=== PATIENT | female | born 1950 | race Hispanic/Latino ===

== ENCOUNTER 2022-02-25 07:20 | Day surgery (SDC) | payer OTHER ==
[2022-02-23 12:05] LABS: BASOPHILS % (AUTO) 0.5 % (0.0-5.0); EOSINOPHILS % (AUTO) 1.8 % (0.0-8.0); HEMATOCRIT 36.3 % (36-48); LYMPHOCYTES % (AUTO) 28.1 % (21.0-51.0); MEAN CORPUSCULAR HEMOGLOBIN 31.1 pg (27.0-33.0); MEAN CORPUSCULAR HGB CONC 33.1 g/dL (32.0-36.0); MONOCYTES % (AUTO) 5.4 % (3.0-13.0); PLATELET COUNT (AUTO) 242 K/uL (130-400); RED BLOOD CELL COUNT(AUTO) 3.86 MIL/uL (4.00-5.50); RED CELL DISTRIBUTION WIDTH 12.4 % (11.0-15.5); WHITE BLOOD COUNT (AUTO) 6.3 K/uL (4.8-10.8)
[2022-02-23 12:08] LABS: APPEARANCE,URINE CLEAR (CLEAR); BILIRUBIN,URINE NEGATIVE (NEGATIVE); COLOR,URINE LIGHT-YELLOW (YELLOW); GLUCOSE, URINE (UA) NEGATIVE (NEGATIVE); KETONES,URINE NEGATIVE (NEGATIVE); LEUKOCYTE ESTERASE ,URINE NEGATIVE Leu/uL (NEGATIVE); NITRATE,URINE NEGATIVE (NEGATIVE); OCCULT BLOOD,URINE NEGATIVE (NEGATIVE); PH,URINE 7.5 (5.0-8.0); PROTEIN,URINE NEGATIVE (NEGATIVE); UROBILINOGEN,URINE 0.2 mg/dL (0.2-1.0)
[2022-02-23 12:18] LABS: INR 0.95 (0.85-1.15); PROTHROMBIN TIME 10.4 SEC (9.6-11.6)
[2022-02-23 12:19] LABS: PARTIAL THROMBOPLASTIN TIME 25.9 SEC (26.3-35.5)
[2022-02-23 12:28] LABS: CREATININE 1.1 mg/dL (0.5-1.5); POTASSIUM 4.2 mmol/L (3.5-5.1)
[2022-02-23 12:41] LABS: B-TYPE NATRIURETIC PEPTIDE 120 pg/mL (0-100)
[~2022-02-25] VITALS: Ht 149.9 cm; Wt 57.7 kg
[2022-02-25] VITALS (7 sets, daily range): BP systolic 125–159; BP diastolic 48–84
[~2022-02-25 07:20] MED LIST: APIX5TAB PO; ATOR40TA69 PO; CARV3.12 PO; CILO100T3 PO; DULO60CA64 PO; FLUT16H NASAL; GABA300C PO; LAMO25TA9 PO; LEVO75TA10 PO; LISI10TA24 PO; OMEG-148 PO; POTA10CA45 PO
[2022-02-25] MEDS ORDERED: 0.9%NACL 1000ML 1,000 ML IV ONE (07:45)
[2022-02-25] MEDS ORDERED: NICARDIPINE 25MG INJ IV ONE (14:55)
[2022-02-25] MEDS ORDERED: HEPARIN 10,000 UNIT/10ML (1,000 UNIT/ML) VIAL ONE (14:55)
[2022-02-25] MEDS ORDERED: NITROGLYCERIN 50MG VIAL ONE (14:55)
[2022-02-25] MEDS ORDERED: IOHEXOL 350 MG/ML 100ML INFUS..BTL IV ONE (14:56)
[2022-02-25] MEDS ORDERED: FENTANYL CITRATE PF 50 MCG/1 ML 2ML VIAL ONE (14:56)
[2022-02-25] MEDS ORDERED: IOHEXOL-350 50ML VIAL IV ONE (14:56)
[2022-02-25] MEDS ORDERED: MIDAZOLAM HCL 1 MG/ML 2ML VIAL ONE (14:56)
[2022-02-25] MEDS ORDERED: SODIUM BICARB 50MEQ 50ML VIAL 50 ML ONE (14:57)
[2022-02-25] MEDS ORDERED: LIDOCAINE HCL 400MG/20ML VIAL ONE (14:57)
[2022-02-25] MEDS ORDERED: 0.9% NACL 500ML IV.SOLN 500 ML IV SCH (16:00)
== END 2022-02-25 18:44 | disposition home or self-care (01) ==
LOC: DAH 07:20
PROVIDERS: ATTEND Internal Medicine Cardiovascular Disease
DX: I25.110 Atherosclerotic heart disease of native coronary artery with unstable angina pectoris (principal); I73.9 Peripheral vascular disease, unspecified; I10 Essential (primary) hypertension; I48.0 Paroxysmal atrial fibrillation; E03.9 Hypothyroidism, unspecified; E78.5 Hyperlipidemia, unspecified; Z79.01 Long term (current) use of anticoagulants; Z79.890 Hormone replacement therapy; Z79.899 Other long term (current) drug therapy; Z95.5 Presence of coronary angioplasty implant and graft; Z98.890 Other specified postprocedural states; Z90.710 Acquired absence of both cervix and uterus; Z90.49 Acquired absence of other specified parts of digestive tract; Z90.89 Acquired absence of other organs; Z82.49 Family history of ischemic heart disease and other diseases of the circulatory system; Z83.3 Family history of diabetes mellitus; Z88.0 Allergy status to penicillin
CPT/HCPCS: 80048; 83880; 85025; 85610; 85730; 81003; 36415; 71045; 93005; 93458; C1894 ×3; C1760; C1769; J3010; J3490 ×3; J7030; J2250; J1644; Q9967 ×2; A4215; A4222; A4221; A4663; A4216; A4606; Q9965; A4223 ×3; 99156; 99157